=== PATIENT | female | born 1985 | race Caucasian/White ===

== ENCOUNTER 2020-06-16 11:14 | Inpatient (IN) | payer OTHER ==
[2020-06-19 08:18] VITALS: BMI 32.8
[2020-06-19 08:36] LABS: BASO % 0.6 % (0-2.0); EOS % 0.5 % (0-4.5); HEMOGLOBIN 12.4 GM/dL (10.7-15.3); LYMPH % 20.9 % (8-40); MCH 28.9 pg (25.7-33.7); MCHC 33.5 g/dl (32.0-36.0); MEAN CELL VOLUME 86.4 fl (80-96); MEAN PLT VOLUME 9.3 fl (7.5-11.1); MONO % 6.3 % (3.8-10.2); NEUT % 71.7 % (42.8-82.8); PLATELET COUNT 227 K/MM3 (134-434); RBC 4.29 M/mm3 (3.60-5.2); RDW 14.2 % (11.6-15.6)
[2020-06-19 08:39] LABS: INR 1.04 (0.83-1.09); PROTHROMBIN TIME (PATIENT) 12.8 SEC (9.7-13.0)
[2020-06-19 08:42] LABS: ACTIVATED PTT 26.5 SECONDS (25.2-36.5)
[2020-06-19] MEDS ORDERED: BUTORPHANOL TARTRATE 1 MG/ML VIAL IVPB ONE (08:43)
[2020-06-19] MEDS ORDERED: PROMETHAZINE HCL 25 MG/1 ML VIAL IVPUSH ONE (08:43)
[2020-06-19] MEDS: DEXTROSE 5%-LACTATED RINGERS 1,000 ML IV SCH (08:55)
[2020-06-19] MEDS ORDERED: OXYTOCIN 30 UNITS in 0.9% NS 30 UNIT/500 ML INFUS.BAG IVPB SCH (09:00)
[2020-06-19 09:02] LABS: CALCIUM 8.8 mg/dL (8.5-10.1)
[2020-06-19 09:06] LABS: CREATININE 0.6 mg/dL (0.55-1.3)
[2020-06-19 11:13] LABS: HIV INTERPRETATION NEGATIVE (NEGATIVE)
[2020-06-19] MEDS ORDERED: FENTANYL/BUPIVACAINE/NS/PF - PCEA - 50 ML DISP.SYRIN EP ONE (16:04)
[2020-06-19] MEDS ORDERED: NALOXONE HCL 0.4 MG/ML VIAL IVPUSH PRN (16:08)
[2020-06-19] MEDS ORDERED: BUPIVACAINE HCL/PF 0.25% (2.5MG/ML) 10 ML VIAL ONE (16:12)
[2020-06-19] MEDS: FENTANYL/BUPIVACAINE/NS/PF - PCEA - 50 ML DISP.SYRIN EP SCH (16:25)
[2020-06-19] MEDS ORDERED: ACETAMINOPHEN INJECTION 100 ML IVPB ONE (18:10)
[2020-06-19] MEDS ORDERED: ACETAMINOPHEN 1000 MG/100 ML VIAL (NON FORMULARY) IVPB ONE (18:12)
[2020-06-19] MEDS ORDERED: morphine SULFATE/PF 0.5 MG/ML (2cc Syringe - QUVA) EP ONE (20:31)
[2020-06-19] MEDS ORDERED: ONDANSETRON 4 MG/2 ML VIAL IVPUSH PRN (20:31)
[2020-06-19] MEDS ORDERED: ELECTROLYTE-148 SOLN 500 ML IV ONE (20:34)
[2020-06-19] MEDS ORDERED: CITRIC ACID/SODIUM CITRATE 30 ML UNIT-DOSE CUP PO ONE (20:34)
[2020-06-19] MEDS ORDERED: ceFAZolin SODIUM 1 GM VIAL ONE (20:44)
[2020-06-19] MEDS ORDERED: SODIUM CHLORIDE 0.9% P/F 10 ML VIAL IJ ONE (20:44)
[2020-06-19] MEDS ORDERED: OXYTOCIN 10 UNITS/ML VIAL ONE (20:50)
[2020-06-19] MEDS ORDERED: ePHEDrine SULFATE 50 MG/1 ML AMPULE ONE (21:20)
[2020-06-19] MEDS ORDERED: OXYTOCIN 20 UNITS in 0.9% NS 20 UNIT/1,000 ML INFUS.BAG IV ONE ×2 (21:55→23:49)
[2020-06-19] MEDS: OXYTOCIN 20 UNITS in 0.9% NS 20 UNIT/1,000 ML INFUS.BAG IV SCH (22:00)
[2020-06-19] MEDS ORDERED: SENNOSIDES/DOCUSATE COMBO (SENNA PLUS) TABLET (UD) PO PRN (22:25)
[2020-06-19] MEDS ORDERED: IBUPROFEN 800 MG/8 ML IJ IVPB PRN (22:25)
[2020-06-19] MEDS ORDERED: oxyCODONE HCL 5 MG TABLET PO PRN (22:25)
[2020-06-19] MEDS ORDERED: METHYLERGONOVINE MALEATE 0.2 MG/1 ML AMP IM PRN (22:25)
[2020-06-19] MEDS ORDERED: IBUPROFEN 600 MG TABLET (FP) PO PRN (22:25)
[2020-06-20] MEDS: SIMETHICONE 80 MG TAB.CHEW (FP) PO PRN ×3 (06:22→18:15)
[2020-06-20] MEDS: oxyCODONE HCL 5 MG TABLET PO PRN (06:22)
[2020-06-20] MEDS: ACETAMINOPHEN 325 MG TABLET (FP) PO PRN ×3 (06:22→18:15)
[2020-06-20] MEDS: IBUPROFEN 600 MG TABLET (FP) PO PRN ×3 (06:22→18:15)
[2020-06-20] MEDS: DEXTROSE 5%-LACTATED RINGERS 1,000 ML IV SCH (08:57)
[2020-06-20 09:28] LABS: BASO % 0.1 % (0-2.0); HEMATOCRIT 31.2 % (32.4-45.2); HEMOGLOBIN 10.2 GM/dL (10.7-15.3); LYMPH % 7.6 % (8-40); MCH 28.2 pg (25.7-33.7); MCHC 32.8 g/dl (32.0-36.0); MEAN CELL VOLUME 86.1 fl (80-96); MEAN PLT VOLUME 9.4 fl (7.5-11.1); MONO % 4.2 % (3.8-10.2); NEUT % 88.1 % (42.8-82.8); PLATELET COUNT 212 K/MM3 (134-434); RBC 3.62 M/mm3 (3.60-5.2); WHITE BLOOD COUNT 17.3 K/mm3 (4.0-10.0)
[2020-06-20] MEDS: PRENATAL VITAMINS W/ FOLIC ACID TABLET (FP) PO SCH (10:09)
[2020-06-20] MEDS ORDERED: PRENATAL VITAMINS W/ FOLIC ACID TABLET (FP) PO ONE (10:12)
[2020-06-20] MEDS ORDERED: BISACODYL 10 MG SUPP.RECT RC PRN (22:25)
[2020-06-21] MEDS: ACETAMINOPHEN 325 MG TABLET (FP) PO PRN ×3 (01:37→19:33)
[2020-06-21] MEDS: IBUPROFEN 600 MG TABLET (FP) PO PRN ×4 (01:38→19:32)
[2020-06-21] MEDS: DEXTROSE 5%-LACTATED RINGERS 1,000 ML IV SCH (08:48)
[2020-06-21] MEDS: PRENATAL VITAMINS W/ FOLIC ACID TABLET (FP) PO SCH (09:15)
[2020-06-21] MEDS: SIMETHICONE 80 MG TAB.CHEW (FP) PO PRN ×3 (09:15→19:32)
[2020-06-21] MEDS: oxyCODONE HCL 5 MG TABLET PO PRN ×2 (13:23→19:33)
[2020-06-21] MEDS: ELECTROLYTE-148 SOLN 1,000 ML IV SCH ×2 (19:26→20:59)
[2020-06-21] MEDS: FENTANYL/BUPIVACAINE/NS/PF - PCEA - 50 ML DISP.SYRIN EP SCH (19:26)
[2020-06-21] MEDS: OXYTOCIN 20 UNITS in 0.9% NS 20 UNIT/1,000 ML INFUS.BAG IV SCH (19:27)
[2020-06-21 21:12] VITALS: BP 110/68; PULSE 95; TEMP 97.8
[2020-06-22] MEDS: oxyCODONE HCL 5 MG TABLET PO PRN (07:35)
[2020-06-22] MEDS: IBUPROFEN 600 MG TABLET (FP) PO PRN (07:36)
[2020-06-22] MEDS: SIMETHICONE 80 MG TAB.CHEW (FP) PO PRN (07:36)
[2020-06-22] MEDS: PRENATAL VITAMINS W/ FOLIC ACID TABLET (FP) PO SCH (10:01)
== END 2020-06-22 12:55 | disposition home or self-care (01) | DRG 540 ==
LOC: JPSTO 11:14 → JLDR 06-19 06:30 → J3W 06-20
PROVIDERS: ADMIT Obstetrics & Gynecology; ATTEND Obstetrics & Gynecology
PROC: 3E033VJ Introduction of Other Hormone into Peripheral Vein, Percutaneous Approach (ICD-10-PCS; principal; 2020-06-19)
PROC: 10907ZC Drainage of Amniotic Fluid, Therapeutic from Products of Conception, Via Natural or Artificial Opening (ICD-10-PCS; 2020-06-19)
PROC: 10D00Z1 Extraction of Products of Conception, Low, Open Approach (ICD-10-PCS; 2020-06-19)
DX: O76 Abnormality in fetal heart rate and rhythm complicating labor and delivery (principal); O62.9 Abnormality of forces of labor, unspecified; O41.03X0 Oligohydramnios, third trimester, not applicable or unspecified; O36.63X0 Maternal care for excessive fetal growth, third trimester, not applicable or unspecified; O34.219 Maternal care for unspecified type scar from previous cesarean delivery; Z3A.38 38 weeks gestation of pregnancy; Z37.0 Single live birth
CPT/HCPCS: 36415; 80048; 85025; 85610; 85730; 86780; 86850; 86900; 86901; 87389; 88307-TC; C9803; J0131; U0003; U0005